=== PATIENT | male | born 1930 | race Caucasian/White ===

== ENCOUNTER 2021-08-19 14:01 | Inpatient (IN) ==
--- NOTE | 2021-08-19 14:12 | Emergency Department Note ---
HPI General Chief complaint: Extremity Injury, Lower Stated complaint: right hip fracture Time Seen by Provider: 08/19/21 14:11 Source: patient and family Mode of arrival: ambulatory Limitations: no limitations History of Present Illness HPI Narrative: 89-year-old male with past medical history of hypertension and diabetes presenting with right hip pain. Patient reports that he fell from standing at home about 1 month ago and he has had persistent right hip pain. He had multiple x-rays which did not show a fracture however he followed up recently with his primary provider and an MRI was ordered and obtained 3 days ago. MRI shows a subcapital fracture of the right femoral neck. Patient was sent to the emergency department for admission and surgical repair. Patient and spouse state that he has difficulty ambulating and bearing any weight on the right leg. He has been trying to ambulate with a walker but it has been difficult and painful. Patient denies any pain anywhere else. He does have a history of bilateral knee replacements. He takes a full aspirin daily. Related Data Home Medications Medication Instructions Recorded Confirmed amlodipine 5 mg tablet 5 mg PO QDAY 09/13/19 08/19/21 cholecalciferol (vitamin D3) 50 50 mcg PO QDAY 09/13/19 08/19/21 mcg (2,000 unit) capsule aspirin 325 mg tablet 325 mg PO DAILY 08/19/21 08/19/21 cyclobenzaprine 5 mg tablet 1 tab PO BIDP PRN 08/19/21 08/19/21 furosemide 20 mg tablet 2 tab PO QDAY 08/19/21 08/19/21 insulin glargine 100 unit/mL (3 22 unit SUBCUT QDAY 08/19/21 08/19/21 mL) subcutaneous pen (Lantus Solostar U-100 Insulin) Previous Rx's Medication Instructions Recorded diclofenac sodium 1 % topical gel 4 g TOPICAL QID #100 g 07/26/20 allopurinol 100 mg tablet 200 mg PO BID #360 tab 01/29/21 olmesartan 5 mg tablet (Benicar) 5 mg PO QDAY #90 tab 06/17/21 pravastatin 40 mg tablet 40 mg PO QDAY #90 tab 06/17/21 Lateral stabilizing R knee brace #1 ea 08/01/21 hydrocodone 7.5 mg-acetaminophen 1 tab PO BID PRN #30 tab 08/14/21 325 mg tablet Allergies Allergy/AdvReac Type Severity Reaction Status Date / Time No Known Drug Allergies Allergy Verified 08/14/21 16:52 Review of Systems ROS ROS Narrative: Narrative: Constitutional: Denies fever ENT ED: Denies throat pain Cardiovascular: Denies chest pain or palpitations Respiratory: Denies shortness of breath or cough Gastrointestinal: Denies abdominal pain, nausea or vomiting Genitourinary: Denies dysuria Musculoskeletal: Denies back pain Integumentary: Denies rash Neurological: Denies headache, weakness or dizziness Psychiatric: Denies anxiety Endocrine: Denies fatigue Hematological/Lymphatic: Denies easy bruising PFSH Narrative Patient History Narrative: Narrative: Medical/Surgical/Family History All Active Problems (Updated 08/19/21 @ 16:47 by August Garcia MD) Closed fracture of right hip (Acute) Right knee pain (Acute) Right hip pain (Acute) Right knee DJD (Acute) Decreased pedal pulses (Acute) Frequent falls (Acute) Acute pain of right hip (Acute) Fall (Acute) Fall (Acute) Fracture of rib of left side (Acute) Rib fractures (Acute) Type 2 diabetes mellitus (Chronic) Gout (Chronic) Medicare annual wellness visit, initial (Acute) Annual physical exam (Acute) Left ankle pain (Acute) Right ankle pain (Acute) Lumbago (Acute) Cough (Acute) Neck pain (Acute) Fatigue (Acute) Unexplained weight loss (Acute) Abnormal PSA (Acute) Elevated PSA (Acute) Chills (Acute) Neck pain (Acute) Lightheadedness (Acute) Prostate cancer (Acute) 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, cervical region (Acute) Lymphadenopathy of right cervical region (Acute) Sialadenitis (Acute) Androgen deprivation therapy (Acute) Medical History Annual physical exam Cough Fall Fatigue Fracture of rib of left side Gout Left ankle pain Lightheadedness Lumbago Lymphadenopathy of right cervical region Medicare annual wellness visit, initial Neck pain Right ankle pain Sialadenitis Type 2 diabetes mellitus Unexplained weight loss Surgical History History of bilateral knee replacement History of cholecystectomy History of herniorrhaphy Family History Brother Type 2 diabetes mellitus Sister Type 2 diabetes mellitus Mother History of cancer Type 2 diabetes mellitus Social History Smoking Status: Former smoker Alcohol Intake Frequency: 0-2 drinks per day Substance Use: does not use Exam Narrative Narrative: Narrative: General Limitations: no limitations General appearance: Present alert and in no apparent distress Head Head: Present atraumatic and normocephalic Eye Eye: Present normal appearance and EOMI; Absent scleral icterus or conjunctival injection ENT ENT: Present mucous membranes moist Neck Neck: Present normal inspection and trachea midline Chest Chest: Present symmetric chest wall rise Respiratory Respiratory: Present normal lung sounds bilaterally; Absent respiratory distress, wheezes, stridor, accessory muscle use or prolonged expiratory phase Cardiovascular Cardiovascular: Present regular rate and normal rhythm; Absent systolic murmur or diastolic murmur Adbominal Abdominal: Present soft; Absent distention, tenderness, guarding, rebound or rigidity Expanded Lower Extremity Hip/Pelvis: Present other (Tenderness to palpation of the lateral and anterior right hip. Distal sensation intact. 2+ DP pulses.) Back Back: Absent spinous process tenderness Neurological Neurological: Present alert and oriented X3; Absent motor sensory deficit Psychiatric Psychiatric: Present normal affect and normal mood Skin Skin: Present warm (WNL) and dry Course Consultations Consultation #1: Dr. Muniz, orthopedics Time: 14:55 Consultation #2: Dr. Crisostomo, hospitalist Time: 15:40 Vital Signs Vital signs: Vital Signs Temperature 98.1 F 08/19/21 14:02 Pulse Rate 65 08/19/21 14:02 Respiratory Rate 18 08/19/21 14:02 Blood Pressure 111/72 08/19/21 14:02 Pulse Oximetry (%) 93 08/19/21 14:02 Temperature 97.3 F 08/19/21 16:40 Pulse Rate 64 08/19/21 16:40 Respiratory Rate 15 08/19/21 16:40 Blood Pressure 165/79 08/19/21 16:40 Pulse Oximetry (%) 90 08/19/21 16:40 [facility] Narrative Medical decision making narrative: 89-year-old male presenting with right hip pain. MRI from 3 days ago shows a subcapital right femoral neck fracture. I spoke with Dr. Muniz of orthopedics who will operate on the patient. Preoperative labs, EKG, and imaging ordered. EKG does show what appears to be atrial fibrillation without rapid ventricular rate. Patient does not report any prior history of afib. Labs are pending, will consult the hospitalist for admission. 1630. Patient endorsed to Dr. Crisostomo for admission. Lab Data Lab results reviewed: Yes I reviewed the patient's lab results. Result diagrams: 08/19/21 14:41 08/19/21 14:41 Labs: Lab Results 08/19/21 08/19/21 Range/Units 14:41 14:41 WBC 5.9 (4.5-11.0) K/mcL RBC 3.73 L (4.63-6.08) M/mcL Hgb 12.2 L (13.7-17.5) g/dL Hct 39.0 L (40.1-51.0) % MCV 104.6 H (80.0-100.0) fL MCH 32.7 (26.0-34.0) pg MCHC 31.3 (31.0-36.0) g/dL RDW 13.4 (11.5-14.5) % Plt Count 161 (140-440) K/mcL MPV 10.3 (7.4-10.4) fL Neut % (Auto) 45.0 (38.0-78.0) % Lymph % (Auto) 37.4 (15.5-49.0) % [place] % (Auto) 9.6 (1.0-12.0) % Eos % (Auto) 7.2 H (0.0-7.0) % Baso % (Auto) 0.8 (0.0-2.0) % Lymph # (Auto) 2.22 (1.50-4.80) K/mcL [place] # (Auto) 0.57 (0.10-0.90) K/mcL Eos # (Auto) 0.43 (0.00-0.70) K/mcL Baso # (Auto) 0.05 (0.00-0.30) K/mcL Absolute Neutrophils 2.67 (1.80-8.00) K/mcL Sodium 141 (133-145) mmol/L Potassium 4.8 (3.3-5.1) mmol/L Chloride 109 H (96-108) mmol/L Carbon Dioxide 23 (22-30) mmol/L Anion Gap 9.0 (8.0-16.0) BUN 29 H (8-23) mg/dL Creatinine 1.3 H (0.7-1.2) mg/dL GFR Calculation 48 Glucose 161 H (70-105) mg/dL Calcium 9.2 (8.6-10.4) mg/dL Total Bilirubin 0.3 (0.1-1.0) mg/dL AST 25 (<40) U/L ALT 14 (<40) U/L Alkaline Phosphatase 107 (39-117) U/L Total Protein 6.2 (5.9-8.4) gm/dL Albumin 3.2 (3.2-5.2) gm/dL Globulin 3.0 (2.2-3.7) gm/dL Albumin/Globulin Ratio 1.1 (1.0-2.3) Radiology Data Radiology results reviewed: Yes I reviewed the patient's radiology results. Radiology results narrative: Ordering Physician:August Garcia M.D. Date of Service:08/19/21 Procedure(s):XR chest 1V CLINICAL INFORMATION: Preop COMPARISON: None. TECHNIQUE: PA and Lateral views FINDINGS: The heart is slightly enlarged. Increased density in the superior mediastinum is unchanged and likely reflects tortuous brachiocephalic artery. The pulmonary vessels are normal. Azygos lobe noted. Minor bibasilar atelectasis appreciated no infiltrates or effusions. IMPRESSION: Mild cardiomegaly and minor bibasilar atelectasis. Interpreted and Authenticated by: Fermin Leo 08/19/21 EKG Data EKG #1: EKG attestation: Yes I reviewed and interpreted this EKG. and Yes There are no EKG findings of acute coronary syndrome EKG results narrative: Atrial fibrillation at [address] elevation or depression. Discharge Plan Patient/Caregiver Discharge Instructions Pt seen by SUPERVISOR SHEARING/PA only: No Clinical Impression: Closed fracture of right hip Patient Disposition: Xfer As Inpt ([facility]) Condition: Fair Discharge Date/Time: 08/19/21 16:30 Discharge Location: [facility]
--- NOTE | 2021-08-19 15:11 | XRay Report ---
CLINICAL INFORMATION: Preop COMPARISON: None. TECHNIQUE: PA and Lateral views FINDINGS: The heart is slightly enlarged. Increased density in the superior mediastinum is unchanged and likely reflects tortuous brachiocephalic artery. The pulmonary vessels are normal. Azygos lobe noted. Minor bibasilar atelectasis appreciated no infiltrates or effusions. IMPRESSION: Mild cardiomegaly and minor bibasilar atelectasis. Interpreted and Authenticated by: Fermin Leo 08/19/21
[2021-08-19 15:49] LABS: Basophils # (Auto) 0.05 K/mcL (0.00-0.30); Basophils % (Auto) 0.8 % (0.0-2.0); Eosinophils # (Auto) 0.43 K/mcL (0.00-0.70); Eosinophils % (Auto) 7.2 % (0.0-7.0); Hemoglobin 12.2 g/dL (13.7-17.5); Lymphocytes # (Auto) 2.22 K/mcL (1.50-4.80); Lymphocytes % (Auto) 37.4 % (15.5-49.0); Mean Cell Volume 104.6 fL (80.0-100.0); Mean Corpuscular HGB Conc 31.3 g/dL (31.0-36.0); Mean Platelet Volume 10.3 fL (7.4-10.4); Monocytes # (Auto) 0.57 K/mcL (0.10-0.90); Monocytes % (Auto) 9.6 % (1.0-12.0); Platelet Count 161 K/mcL (140-440); RBC 3.73 M/mcL (4.63-6.08); Red Cell Distribution Width 13.4 % (11.5-14.5); WBC 5.9 K/mcL (4.5-11.0)
--- NOTE | 2021-08-19 15:50 | Internal Med History&Physical ---
HPI History of Present Illness Patient information: Note initiated : 08/19/21 at 3:45 pm Service Date, if different from initiated Date: [] Patient: Cipriano Man a 89 y/o M admitted on for right hip fracture. Chief Complaint: [] History of present illness: Mr. Man is a 89 year old M Patient says he tripped backwards that his right knee gave out landing on his right hip this happened about a month ago. Has had persistent pain and difficulty walking since then. He got an MRI by his PCP few days ago which showed a right hip fracture. Patient sent to the ED and Dr. Muniz for orthopedic surgery was contacted. MRI reported a subcapital fracture of the right femoral neck. Patient denies any recent illnesses. EKG in the ED showed appeared to be slow A. fib. Patient denies chest pain or shortness of breath. Awaiting laboratory results. Review of Systems: Pertinent positives as above. Denies headache/fever/chills/nausea/vomiting/chest or abdominal pain/cough/dyspnea/diarrhea. Remaining 10 point review of system reviewed [facility] All Active Problems (Updated 08/15/21 @ 08:01 by Ramana Ortiz MD) Right knee pain (Acute) Right hip pain (Acute) Right knee DJD (Acute) Decreased pedal pulses (Acute) Frequent falls (Acute) Acute pain of right hip (Acute) Fall (Acute) Fall (Acute) Fracture of rib of left side (Acute) Rib fractures (Acute) Type 2 diabetes mellitus (Chronic) Gout (Chronic) Medicare annual wellness visit, initial (Acute) Annual physical exam (Acute) Left ankle pain (Acute) Right ankle pain (Acute) Lumbago (Acute) Cough (Acute) Neck pain (Acute) Fatigue (Acute) Unexplained weight loss (Acute) Abnormal PSA (Acute) Elevated PSA (Acute) Chills (Acute) Neck pain (Acute) Lightheadedness (Acute) Prostate cancer (Acute) 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, cervical region (Acute) Lymphadenopathy of right cervical region (Acute) Sialadenitis (Acute) Androgen deprivation therapy (Acute) Medical History Annual physical exam Cough Fall Fatigue Fracture of rib of left side Gout Left ankle pain Lightheadedness Lumbago Lymphadenopathy of right cervical region Medicare annual wellness visit, initial Neck pain Right ankle pain Sialadenitis Type 2 diabetes mellitus Unexplained weight loss Surgical History History of bilateral knee replacement History of cholecystectomy History of herniorrhaphy Family History Brother Type 2 diabetes mellitus Sister Type 2 diabetes mellitus Mother History of cancer Type 2 diabetes mellitus Social History marital status: education level: high school occupational status: retired smoking status: Former smoker pack-years: 40 alcohol intake frequency: 0-2 drinks per day substance use type: does not use MEDS/ALLERGIES Home Medications and Allergies Home Medications Medication Instructions Recorded Confirmed Type amlodipine 5 mg tablet 5 mg PO QDAY 09/13/19 08/19/21 History cholecalciferol (vitamin D3) 50 50 mcg PO QDAY 09/13/19 08/14/21 History mcg (2,000 unit) capsule diclofenac sodium 1 % topical gel 4 g TOPICAL QID #100 g 07/26/20 08/14/21 Rx allopurinol 100 mg tablet 200 mg PO BID #360 tab 01/29/21 08/14/21 Rx olmesartan 5 mg tablet (Benicar) 5 mg PO QDAY #90 tab 06/17/21 08/19/21 Rx pravastatin 40 mg tablet 40 mg PO QDAY #90 tab 06/17/21 08/19/21 Rx Lateral stabilizing R knee brace #1 ea 08/01/21 08/14/21 Rx lidocaine 5 % topical patch 1 patch TOPICAL QDAY PRN ea 08/01/21 08/14/21 History hydrocodone 7.5 mg-acetaminophen 1 tab PO BID PRN #30 tab 08/14/21 08/19/21 Rx 325 mg tablet cyclobenzaprine 5 mg tablet 1 tab PO BIDP PRN 08/19/21 08/19/21 History furosemide 20 mg tablet 2 tab PO QDAY 08/19/21 08/19/21 History insulin glargine 100 unit/mL (3 22 unit SUBCUT QDAY 08/19/21 08/19/21 History mL) subcutaneous pen (Lantus Solostar U-100 Insulin) Allergies Allergy/AdvReac Type Severity Reaction Status Date / Time No Known Drug Allergies Allergy Verified 08/14/21 16:52 EXAM Constitutional Vitals: Temp Pulse Resp BP Pulse Ox 98.1 F 62 18 119/76 91 08/19/21 14:02 08/19/21 15:32 08/19/21 14:02 08/19/21 15:32 08/19/21 15:32 Exam: General: Alert, Awake, No acute Distress Eyes/N/T: EOMI, PERRL, Head/Neck: neck supple, normocephalic atraumatic CV: Mildly bradycardic and irregular, No murmurs, normal s1/s2 Pulm: Clear b/l, no wheezing/rhonchi/rales Abd: soft, nontender, +BS x4 Ext: no clubbing/cyanosis, b/l LE chronic 1+ edema Neuro: Alert, no focal deficits, moves all extremities, CN 2-12 grossly intact, symmetrical strength b/l upper/lower, sensations intact b/l upper/lower Skin: warm/dry DATA Data Completed and Pending Labs: Labs from last 24 hours 08/19/21 08/19/21 14:41 14:41 WBC Pending RBC Pending Hgb Pending Hct Pending MCV Pending MCH Pending MCHC Pending RDW Pending Plt Count Pending MPV Pending Neut % (Auto) Pending Sodium Pending Potassium Pending Chloride Pending Carbon Dioxide Pending Anion Gap Pending BUN Pending Creatinine Pending GFR Calculation Pending Glucose Pending Calcium Pending Total Bilirubin Pending AST Pending ALT Pending Alkaline Phosphatase Pending Total Protein Pending Albumin Pending Globulin Pending Albumin/Globulin Ratio Pending A/P Narrative A/P Narrative: A: *Right hip fracture: *Generalized weakness/deconditioning: *?Permanent AFib, slow: *CKD IIIb: *HTN/HLD: *DM: *Chronic pain: *Peripheral edema: On Lasix 40mg daily@home P: -Dr Muniz for Ortho -Pain control -PT/OT -Telemetry monitoring, follow-up EKG -Basal and SSI -Continue Norvasc/ARB -Continue statin - -CM for placement needs -ppx: SCD and postop per Ortho Time Spent With Patient Time: Total time spent is greater than 50% in coordination of care (as documented) at patient's floor/unit and/or counseling patient: Total time spent with greater than 50% in coordination of care (as documented) at patient's floor/unit and/or counseling patient:: 50 - 70 minutes
[2021-08-19 16:14] LABS: ALT/SGPT 14 U/L (<40); AST/SGOT 25 U/L (<40); Albumin 3.2 gm/dL (3.2-5.2); Albumin/Globulin Ratio 1.1 (1.0-2.3); Alkaline Phosphatase 107 U/L (39-117); Bilirubin,Total 0.3 mg/dL (0.1-1.0); Blood Urea Nitrogen 29 mg/dL (8-23); Calcium 9.2 mg/dL (8.6-10.4); Carbon Dioxide 23 mmol/L (22-30); Chloride 109 mmol/L (96-108); Glomerular Filtration Rate 48; Glucose 161 mg/dL (70-105)
[2021-08-19] MEDS ORDERED: SENNOSIDES 1 TABLET PO PRN (17:20)
[2021-08-19] MEDS ORDERED: ONDANSETRON 4 MG/2 ML VIAL IV PRN (17:20)
[2021-08-19] MEDS ORDERED: DEXTROSE 50% 50 ML VIAL IV PRN (17:20)
[2021-08-19] MEDS ORDERED: DEXTROSE 31 GM ORAL.SUSP PO PRN (17:20)
[2021-08-19] MEDS ORDERED: POTASSIUM CHLORIDE 40 MEQ in DEXTROSE 5% IN WATER 500 ML IV PRN (17:20)
[2021-08-19] MEDS ORDERED: morphine 4 MG/ML VIAL IV PRN (17:20)
[2021-08-19] MEDS ORDERED: POTASSIUM CHLORIDE 20 MEQ TABLET PO PRN ×2 (17:20)
[2021-08-19] MEDS ORDERED: MAGNESIUM SULFATE 2 GM/50 ML BAG IV PRN (17:20)
[2021-08-19] MEDS ORDERED: POLYETHYLENE GLYCOL 3350 17 GM PACKET PO PRN (17:20)
[2021-08-19] MEDS ORDERED: IPRATROPIUM/ALBUTEROL 3 ML AMPUL.NEB NEB PRN (17:20)
[2021-08-19] MEDS ORDERED: HYDROCODONE/APAP 7.5/325MG TABLET PO PRN (17:31)
[2021-08-19] MEDS ORDERED: CYCLOBENZAPRINE 10 MG TABLET PO PRN (17:32)
[2021-08-19] MEDS ORDERED: LIDOCAINE HCL/PF 100 MG/5 ML SYRINGE IV ONE (19:10)
[2021-08-19] MEDS ORDERED: DEXAMETHASONE 10 MG/ML VIAL ONE (19:10)
[2021-08-19] MEDS ORDERED: GLYCOPYRROLATE 0.2 MG/ML VIAL IV ONE (19:10)
[2021-08-19] MEDS ORDERED: TRANEXAMIC ACID 1,000 MG/10 ML VIAL ONE (19:10)
[2021-08-19] MEDS ORDERED: SUGAMMADEX SODIUM 200 MG/2 ML VIAL IV ONE (19:10)
[2021-08-19] MEDS ORDERED: ONDANSETRON 4 MG/2 ML VIAL ONE (19:10)
[2021-08-19] MEDS ORDERED: PROPOFOL 200 MG/20 ML VIAL IV ONE (19:10)
[2021-08-19] MEDS ORDERED: ROCURONIUM 10 MG/ML ML IV ONE (19:10)
[2021-08-19] MEDS: DOCUSATE SODIUM 100 MG CAPSULE PO SCH (21:24)
[2021-08-19] MEDS: SIMVASTATIN 10 MG TABLET PO SCH (21:35)
[2021-08-19] MEDS: INSULIN LISPRO 1 UNIT/0.01 ML UNIT SQ SCH ×2 (21:42→21:43)
[2021-08-19] MEDS: INSULIN GLARGINE, HUMAN 1 UNIT/0.01 ML SQ SCH (21:45)
[2021-08-19] MEDS: 0.9 % SODIUM CHLORIDE 10 ML SYRINGE IV SCH (22:00)
[2021-08-20] MEDS: 0.9 % SODIUM CHLORIDE 10 ML SYRINGE IV SCH ×3 (06:02→22:18)
[2021-08-20 06:38] LABS: Basophils # (Auto) 0.05 K/mcL (0.00-0.30); Basophils % (Auto) 0.9 % (0.0-2.0); Eosinophils % (Auto) 8.6 % (0.0-7.0); Hematocrit 36.6 % (40.1-51.0); Hemoglobin 11.6 g/dL (13.7-17.5); Lymphocytes # (Auto) 2.17 K/mcL (1.50-4.80); Lymphocytes % (Auto) 37.4 % (15.5-49.0); Mean Cell Volume 103.1 fL (80.0-100.0); Mean Corpuscular HGB Conc 31.7 g/dL (31.0-36.0); Monocytes # (Auto) 0.55 K/mcL (0.10-0.90); Monocytes % (Auto) 9.5 % (1.0-12.0); Neutrophils % (Auto) 43.6 % (38.0-78.0); Platelet Count 147 K/mcL (140-440); RBC 3.55 M/mcL (4.63-6.08); Red Cell Distribution Width 13.2 % (11.5-14.5); WBC 5.8 K/mcL (4.5-11.0)
[2021-08-20 06:59] LABS: ALT/SGPT 16 U/L (<40); AST/SGOT 23 U/L (<40); Albumin 3.3 gm/dL (3.2-5.2); Albumin/Globulin Ratio 1.4 (1.0-2.3); Alkaline Phosphatase 96 U/L (39-117); Bilirubin,Direct < 0.2 mg/dL (0-0.3); Bilirubin,Total 0.4 mg/dL (0.1-1.0); Blood Urea Nitrogen 22 mg/dL (8-23); Calcium 9.1 mg/dL (8.6-10.4); Carbon Dioxide 24 mmol/L (22-30); Chloride 106 mmol/L (96-108); Globulin 2.3 gm/dL (2.2-3.7); Glomerular Filtration Rate 48; Glucose 50 mg/dL (70-105); Lactate Dehydrogenase 148 U/L (135-225); Phosphorous 3.1 mg/dL (2.5-4.5); Triglycerides 36 mg/dL (<150); Uric Acid 4.9 mg/dL (2.5-8.0)
[2021-08-20] MEDS: INSULIN LISPRO 1 UNIT/0.01 ML UNIT SQ SCH ×4 (07:41→22:29)
[2021-08-20] MEDS: FUROSEMIDE 40 MG TABLET PO SCH (07:41)
[2021-08-20] MEDS: OLMESARTAN MEDOXOMIL 20 MG TABLET PO SCH (07:41)
[2021-08-20] MEDS: amLODIPine 5 MG TABLET PO SCH (07:41)
[2021-08-20] MEDS: DOCUSATE SODIUM 100 MG CAPSULE PO SCH ×3 (07:41→23:05)
--- NOTE | 2021-08-20 08:16 | Internal Med Progress Note ---
SUBJECTIVE Subjective Patient information: Note initiated : 08/20/21 at 8:14 am Service Date, if different from initiated Date: [] Patient: Cipriano Man 89 y/o M admitted on 08/19/21 for right hip fracture. Chief Complaint: [] Interval history: History of present illness: Mr. Man is a 89 year old M Patient says he tripped backwards that his right knee gave out landing on his right hip this happened about a month ago. Has had persistent pain and difficulty walking since then. He got an MRI by his PCP few days ago which showed a right hip fracture. Patient sent to the ED and Dr. Muniz for orthopedic surgery was contacted. MRI reported a subcapital fracture of the right femoral neck. Patient denies any recent illnesses. EKG in the ED showed appeared to be slow A. fib. Patient denies chest pain or shortness of breath. Awaiting laboratory results. 08/20 No new complaints overnight events. Patient denies any history of arrhythmias. AFib on EKG. Review of Systems: denies headache/fever/chills/nausea/vomiting/chest or abdominal pain/cough/dyspnea/diarrhea. Otherwise see above. Constitutional Vitals: Vital Signs Temp Pulse Resp BP Pulse Ox 97.1 F 61 15 148/87 92 08/20/21 07:15 08/20/21 07:15 08/20/21 07:15 08/20/21 07:15 08/20/21 07:15 Period Temp Pulse Resp BP Sys/Oropeza Pulse Ox Last 24 Hr 97.1 F-98.1 F 52-73 12-20 111-185/65-92 88-95 Intake and Output 08/19/21 08/20/21 08/20/21 21:59 05:59 13:59 Intake Total 0 Output Total 1675 Balance -1675 Weight 82.1 kg Intake & Output: Intake & Output 08/19/21 08/20/21 08/20/21 21:59 05:59 13:59 Intake Total 0 Output Total 1675 Balance -1675 Weight 82.1 kg Intake: Oral 0 Output: Void Amount 1675 Other: Urine Appearance Clear Urine Color Straw Stool Size Moderate Stool Color Brown Stool Consistency Formed # Bowel Movements 1 Exam: General: Alert, Awake, No acute Distress Eyes/N/T: EOMI,, Head/Neck: neck supple, CV: irregular, No murmurs, Pulm: Clear b/l, no wheezing/rhonchi/rales Abd: soft, nontender, +BS x4 Ext: no clubbing/cyanosis, b/l LE chronic 1+ edema Neuro: Alert, no focal deficits, moves all extremities, Skin: warm/dry OBJ DATA Labs CBC & Chem 7: 08/20/21 05:40 08/20/21 05:39 Labs: Abnormal Lab Results 08/20/21 08/20/21 08/19/21 05:40 05:39 14:41 RBC 3.55 L Hgb 11.6 L Hct 36.6 L MCV 103.1 H Eos % (Auto) 8.6 H Chloride 109 H BUN 29 H Creatinine 1.3 H 1.3 H Glucose 50 L 161 H Total Protein 5.6 L 08/19/21 14:41 RBC 3.73 L Hgb 12.2 L Hct 39.0 L MCV 104.6 H Eos % (Auto) 7.2 H Chloride BUN Creatinine Glucose Total Protein Meds: Medications Acetaminophen (Acetaminophen 325 Mg Tablet) 650 mg PO Q6HP PRN; Protocol PRN Reason: Per Pain Protocol/Fever > 101 Hydrocodone Bitart/Acetaminophen (Hydrocodone/Apap 7.5/325mg Tablet) 1 tab PO BIDP PRN PRN Reason: Pain Last Admin: 08/19/21 23:44 Dose: 1 tab Documented by: Albuterol/Ipratropium (Ipratropium/Albuterol 3 Ml Ampul.Neb) 3 ml NEB Q4HP PRN PRN Reason: Shortness Of Breath Amlodipine Besylate (Amlodipine 5 Mg Tablet) 5 mg PO QDAY [facility] Last Admin: 08/20/21 07:41 Dose: 5 mg Documented by: Cyclobenzaprine HCl (Cyclobenzaprine 10 Mg Tablet) 5 mg PO BIDP PRN PRN Reason: Muscle Spasm Dextrose (Dextrose 50% 50 Ml Vial) 0 ml IV UD PRN PRN Reason: Per Sliding Scale Diagnostic Test (Pha) (Accu-Chek 1 Each Strip) 1 each FS ACHS [facility] Last Admin: 08/20/21 07:41 Dose: 1 each Documented by: Docusate Sodium (Docusate Sodium 100 Mg Capsule) 100 mg PO BID [facility] Last Admin: 05/18/22 07:41 Dose: 100 mg Documented by: Furosemide (Furosemide 40 Mg Tablet) 40 mg PO DAILY [facility] Last Admin: 08/20/21 07:41 Dose: 40 mg Documented by: Glucose (Dextrose 31 Gm Oral.Susp) 15 gm PO PRN PRN PRN Reason: Hypoglycemia Potassium Chloride 40 meq/ (Dextrose) 520 mls @ 130 mls/hr IV UD PRN PRN Reason: Potassium < 3 Magnesium Sulfate (Magnesium Sulfate) 2 gm in 50 mls @ 50 mls/hr IV UD PRN PRN Reason: Magnesium </= 1.6 Insulin Glargine (Insulin Glargine, Human 1 Unit/0.01 Ml) [address] [facility] Last Admin: 08/19/21 21:45 Dose: 10 units Documented by: Insulin Human Lispro (Insulin Lispro 1 Unit/0.01 Ml Unit) 0 unit SQ [facility]; Protocol Last Admin: 08/20/21 07:41 Dose: Not Given Documented by: Morphine Sulfate (Morphine 4 Mg/Ml Vial) 0 mg IV Q3HP PRN PRN Reason: Pain Olmesartan (Olmesartan Medoxomil 20 Mg Tablet) 5 mg PO DAILY [facility] Last Admin: 08/20/21 07:41 Dose: 5 mg Documented by: Ondansetron HCl (Ondansetron 4 Mg/2 Ml Vial) 4 mg IV Q4HP PRN PRN Reason: Nausea And Vomiting Polyethylene Glycol (Polyethylene Glycol 3350 17 Gm Packet) 17 gm PO DAILYP PRN PRN Reason: Constipation Potassium Chloride (Potassium Chloride 20 Meq Tablet) 40 meq PO UD PRN PRN Reason: Potssium is 3-3.5 Potassium Chloride (Potassium Chloride 20 Meq Tablet) 40 meq PO UD PRN PRN Reason: Potassium < 3 Senna (Sennosides 1 Tablet) 2 tab PO DAILYP PRN PRN Reason: Constipation Simvastatin (Simvastatin 10 Mg Tablet) [address] [facility] Last Admin: 08/19/21 21:35 Dose: 10 mg Documented by: Sodium Chloride (0.9 % Sodium Chloride 10 Ml Syringe) 10 ml IV Q8 [facility] Last Admin: 08/20/21 06:02 Dose: 10 ml Documented by: A/P Narrative A/P Narrative: A: *Right hip fracture: *Generalized weakness/deconditioning: *Permanent AFib, slow: -CHADSVASC=3 *CKD IIIb: *Anemia, chronic: *HTN/HLD: *DM: *Chronic pain: *Peripheral edema: On Lasix 40mg daily@home P: -Dr Muniz for Ortho -Pain control -PT/OT -Telemetry monitoring, follow-up EKG -echo -Anticoagulation discussion -Basal and SSI -Renally dosed allopurinol -Continue Norvasc/ARB -Continue statin -CM for placement needs -ppx: SCD and postop per Ortho Time Spent With Patient Time: Total time spent is greater than 50% in coordination of care (as documented) at patient's floor/unit and/or counseling patient: Total time spent with greater than 50% in coordination of care (as documented) at patient's floor/unit and/or counseling patient:: 35 - 50 minutes QUALITY VTE Deep Vein Thrombosis/Pulmonary Embolism Present on Admission: No
[2021-08-20] MEDS ORDERED: ALLOPURINOL 100 MG TABLET PO SCH (09:00)
[2021-08-20] MEDS: ALLOPURINOL 100 MG TABLET PO SCH (11:23)
[2021-08-20] MEDS ORDERED: ceFAZolin 2 GM in DEXTROSE 5% IN WATER 50 ML IV SCH ×2 (18:45→20:00)
[2021-08-20] MEDS ORDERED: ceFAZolin 1 GM VIAL ONE (18:56)
[2021-08-20] MEDS ORDERED: BUPIVACAINE PF 0.5% 30 ML VIAL ONE (19:10)
[2021-08-20] MEDS ORDERED: PROMETHAZINE 25 MG/ML VIAL IV PRN (19:33)
[2021-08-20] MEDS ORDERED: NALOXONE HCL 0.4 MG/ML VIAL IV PRN (19:33)
[2021-08-20] MEDS ORDERED: KETOROLAC 30 MG/ML VIAL IV PRN (19:33)
[2021-08-20] MEDS ORDERED: IPRATROPIUM/ALBUTEROL 3 ML AMPUL.NEB NEB PRN (19:33)
[2021-08-20] MEDS ORDERED: ACETAMINOPHEN 1,000 MG/100 ML BAG IV ONE ×2 (19:33→20:32)
[2021-08-20] MEDS ORDERED: LACTATED RINGERS 250 ML IV PRN (19:33)
[2021-08-20] MEDS ORDERED: ONDANSETRON 4 MG/2 ML VIAL IV PRN (19:33)
[2021-08-20] MEDS ORDERED: LACTATED RINGERS 1,000 ML IV SCH (19:45)
--- NOTE | 2021-08-20 19:53 | General Surgery Procedure Note ---
Date of procedure: Note initiated : 08/20/21 at 7:51 pm Service Date, if different from initiated Date: [] Pre-op diagnosis: right hip femoral neck fracture Post-op diagnosis: same Procedure: right hip perc screws Anesthesia: SABRINA Surgeon: Fermin Muniz Estimated blood loss: 25 Pathology: none sent Condition: stable Disposition: PACU
--- NOTE | 2021-08-20 19:54 | Discharge Plan ---
DC Instructions-General Patient Instructions Dressing Care: May shower in 2 days Discharge Plan Patient/Caregiver Discharge Instructions Activity: ambulate only with your walker, as instructed and other Diet: Regular Diet Prescriptions: No Action allopurinol 100 mg tablet 200 mg PO BID Qty: 360 1RF pravastatin 40 mg tablet 40 mg PO QDAY Qty: 90 1RF olmesartan [Benicar] 5 mg tablet 5 mg PO QDAY Qty: 90 1RF amlodipine 5 mg tablet 5 mg PO QDAY 0RF cholecalciferol (vitamin D3) 50 mcg (2,000 unit) capsule 50 mcg PO QDAY 0RF (DME) Lateral stabilizing R knee brace See Rx Instructions .Route .MEDSUPPLY Qty: 1 0RF Rx Instructions: As directed hydrocodone-acetaminophen 7.5-325 mg tablet 1 tab PO BID PRN (Reason: pain) Qty: 30 0RF diclofenac sodium 1 % gel 4 g topical QID Qty: 100 0RF Rx Instructions: apply to area of pain furosemide 20 mg tablet 2 tab PO QDAY 0RF cyclobenzaprine 5 mg tablet 1 tab PO BIDP PRN (Reason: muscle spasm) 0RF Lantus Solostar U-100 Insulin 100 unit/mL (3 mL) insulin pen 22 unit subcut QDAY 0RF aspirin 325 mg Tablet 325 mg PO DAILY 0RF leuprolide acetate (6 month) 45 mg syringe kit 45 mg IM ONCE Qty: 1 0RF Follow Up Plan Follow up with: Fermin Muniz MD [Physician] - Ramana Ortiz MD [Primary Care Provider] - Patient Disposition: Xfer SNF Plan of Treatment: 50% weight bearing Prognosis: Fair Rehab Potential: Good I certify that the patient requires SNF services: Yes Overall status at discharge: patient is progressing back to baseline Discharge Orders: Discharge Order (Routine); Ordered 08/20/21 Ordered By: Fermin Muniz Discharge Comment: cc: right hip fx s/p per screw fixation
[2021-08-20] MEDS ORDERED: HYDROcodone/APAP 10/325MG TABLET PO PRN (19:55)
[2021-08-20] MEDS ORDERED: ONDANSETRON 4 MG ODT TABLET SL PRN (19:55)
[2021-08-20] MEDS ORDERED: POLYETHYLENE GLYCOL 3350 17 GM PACKET PO PRN (19:55)
[2021-08-20] MEDS ORDERED: FLEETS ADULT ENEMA PR PRN (19:55)
[2021-08-20] MEDS ORDERED: MAGNESIUM HYDROXIDE 30 ML ORAL.SUSP PO PRN (19:55)
[2021-08-20] MEDS ORDERED: morphine 4 MG/ML VIAL IV PRN (19:55)
[2021-08-20] MEDS ORDERED: BISACODYL 10 MG SUPP.RECT PR PRN (19:55)
[2021-08-20] MEDS: fentaNYL 100 MCG/2 ML VIAL IV PRN ×4 (20:24→20:30)
[2021-08-20] MEDS ORDERED: fentaNYL 100 MCG/2 ML VIAL IV ONE (20:31)
[2021-08-20] MEDS: SIMVASTATIN 10 MG TABLET PO SCH (22:26)
[2021-08-20] MEDS: INSULIN GLARGINE, HUMAN 1 UNIT/0.01 ML SQ SCH (22:27)
[2021-08-20] MEDS: SENNOSIDES 1 TABLET PO SCH (22:27)
--- NOTE | 2021-08-21 03:55 | XRay Report ---
CLINICAL INFORMATION: ORIF subcapital fracture right hip COMPARISON: None. FINDINGS: Two digital images submitted from the OR show subcapital fracture anatomically aligned transfixed by three screws. Total fluoroscopy time 0.5 minutes.. IMPRESSION: ORIF subcapital fracture in anatomic alignment Interpreted and Authenticated by: Fermin Leo 08/21/21
[2021-08-21] MEDS: 0.9 % SODIUM CHLORIDE 10 ML SYRINGE IV SCH ×3 (04:23→22:51)
[2021-08-21] MEDS: ceFAZolin 1 GM VIAL IV SCH ×2 (04:23→11:09)
--- NOTE | 2021-08-21 07:28 | Operative Note ---
DATE OF OPERATION: 08/20/2021 PREOPERATIVE DIAGNOSIS: Right subcapital femoral neck fracture, nondisplaced. POSTOPERATIVE DIAGNOSIS: Right subcapital femoral neck fracture, nondisplaced. PROCEDURE PERFORMED: Right hip closed reduction and percutaneous screw fixation. SURGEON: Don Muniz MD CORRECTIONAL SECURITY OFFICER SURGEON: None. ANESTHESIA: General. INDICATIONS: The patient is an 89-year-old male. He fell about 5 weeks ago. He has had pain ever since. He has been unable to ambulate and x-rays and MRI have confirmed a nondisplaced subcapital femoral neck fracture. We talked about continued conservative care versus surgical intervention, but he had significant pain and difficulty with any type of motion and the family and he wished to proceed with surgical intervention, which I felt was reasonable at this point. The risks and benefits were discussed with the patient in detail including, but not limited to, the risks of anesthesia, problems with the heart or lungs related to anesthesia, infection, compromise or injury to the nerves and blood vessels, deep venous thrombosis, pulmonary embolism, pneumonia, continued pain after surgery, worsening pain or symptoms after surgery, swelling, loss of motion, need for repeat surgery, hardware failure, re-tear or failure of repair site, malunion, nonunion, and hardware pain requiring future removal. DESCRIPTION OF PROCEDURE: The patient was seen preoperatively where site was marked and questions were answered. He was then transferred to the operating room, given 2 grams of Ancef and general anesthesia was administered without complication. He was placed on the fracture table with all prominences well padded. He was prepped and draped in the usual sterile fashion throughout the hip using a wall drape. We took preliminary x-rays and visualized the hip and appropriate placement. I percutaneously placed the distal screw in a center-center position of the femur low on the calcar up into the center-center position on the head. I placed two additional percutaneous pins and an inverted triangle on the superior aspect of the neck, one anterior and one posterior. This was confirmed with the C-arm, both in AP and lateral views. I then measured, overdrilled, and reamed and placed three 7.0 mm cannulated screw, short thread which spanned the fracture site and got excellent compression. I took final radiographs and confirmed that the hardware was in good position. The fracture was anatomically reduced. The hardware was in appropriate position. The wounds were thoroughly irrigated, closed with guillermo and dressed with Xeroform, 4 x 4's, ABD, and Medipore tape. He was extubated, transferred to the stretcher, taken to PACU in stable condition. SPECIMENS: None. COMPLICATIONS: None. DRAINS: None. DISPOSITION: To PACU in stable condition. JORGE:elana Job ID: [id number] Doc ID: [id number] Don Muniz MD
[2021-08-21 07:54] LABS: ALT/SGPT 14 U/L (<40); AST/SGOT 21 U/L (<40); Albumin 3.2 gm/dL (3.2-5.2); Albumin/Globulin Ratio 1.2 (1.0-2.3); Alkaline Phosphatase 109 U/L (39-117); Bilirubin,Direct < 0.2 mg/dL (0-0.3); Bilirubin,Total 0.2 mg/dL (0.1-1.0); Blood Urea Nitrogen 25 mg/dL (8-23); Calcium 9.3 mg/dL (8.6-10.4); Carbon Dioxide 24 mmol/L (22-30); Chloride 103 mmol/L (96-108); Globulin 2.7 gm/dL (2.2-3.7); Glomerular Filtration Rate 41; Glucose 213 mg/dL (70-105); Lactate Dehydrogenase 133 U/L (135-225); Phosphorous 4.2 mg/dL (2.5-4.5); Triglycerides 30 mg/dL (<150); Uric Acid 5.1 mg/dL (2.5-8.0)
[2021-08-21] MEDS: INSULIN LISPRO 1 UNIT/0.01 ML UNIT SQ SCH ×4 (07:58→22:49)
[2021-08-21] MEDS: ALLOPURINOL 100 MG TABLET PO SCH (07:58)
[2021-08-21] MEDS: FUROSEMIDE 40 MG TABLET PO SCH (07:59)
[2021-08-21] MEDS: ACETAMINOPHEN 325 MG TABLET PO PRN (07:59)
[2021-08-21] MEDS: DOCUSATE SODIUM 100 MG CAPSULE PO SCH ×2 (08:00→22:44)
[2021-08-21] MEDS: OLMESARTAN MEDOXOMIL 20 MG TABLET PO SCH (08:14)
--- NOTE | 2021-08-21 08:16 | Internal Med Progress Note ---
SUBJECTIVE Subjective Patient information: Note initiated : 08/21/21 at 8:11 am Service Date, if different from initiated Date: [] Patient: Cipriano Man 89 y/o M admitted on 08/19/21 for right hip fracture. Chief Complaint: [] Interval history: History of present illness: Mr. Man is a 89 year old M Patient says he tripped backwards that his right knee gave out landing on his right hip this happened about a month ago. Has had persistent pain and difficulty walking since then. He got an MRI by his PCP few days ago which showed a right hip fracture. Patient sent to the ED and Dr. Muniz for orthopedic surgery was contacted. MRI reported a subcapital fracture of the right femoral neck. Patient denies any recent illnesses. EKG in the ED showed appeared to be slow A. fib. Patient denies chest pain or shortness of breath. Awaiting laboratory results. 08/20 No new complaints overnight events. Patient denies any history of arrhythmias. AFib on EKG. 08/21 Patient status post ORIF yesterday. His rhythm with A. fib I did discuss anticoagulation for stroke risk as he has a [id number] score of 3. Patient did not want to start anticoagulation at this time would want to talk to his primary care doctor, I mentioned placing a referral for cardiology. Hyperkalemic today. We will hold ARB. Review of Systems: denies headache/fever/chills/nausea/vomiting/chest or abdominal pain/cough/dyspnea/diarrhea. Otherwise see above. Constitutional Vitals: Vital Signs Temp Pulse Resp BP Pulse Ox 97.4 F 95 H 18 120/74 89 L 08/21/21 07:48 08/21/21 07:48 08/21/21 07:48 08/21/21 07:48 08/21/21 07:48 Period Temp Pulse Resp BP Sys/Oropeza Pulse Ox Last 24 Hr 97.4 F-98.3 F 65-95 12-28 120-143/64-105 88-100 Intake and Output 08/20/21 08/21/21 08/21/21 21:59 05:59 13:59 Intake Total 150 Output Total 0 Balance 150 0 Weight 82.1 kg 82.055 kg Intake & Output: Intake & Output 08/20/21 08/21/21 08/21/21 21:59 05:59 13:59 Intake Total 150 Output Total 0 Balance 150 0 Weight 82.1 kg 82.055 kg Intake: IV 150 Ancef 2 gm In Dextrose 5% in 50 Water 50 ml @ 100 mls/hr IV PREOP NANCY Rx#:[id number] Output: Void Amount 0 # of times incontinent of urine 0 Other: Urine Appearance Clear Urine Color Bright Yellow Urine Odor Normal # Voids 0 Exam: General: Alert, Awake, No acute Distress Eyes/N/T: EOMI,, Head/Neck: neck supple, CV: irregular, No murmurs, Pulm: Clear b/l, no wheezing/rhonchi/rales Abd: soft, nontender, +BS x4 Ext: no clubbing/cyanosis, b/l LE chronic 1+ edema improving Neuro: Alert, no focal deficits, moves all extremities, Skin: warm/dry OBJ DATA Labs CBC & Chem 7: 08/20/21 05:40 08/21/21 05:36 Labs: Abnormal Lab Results 08/21/21 08/20/21 08/20/21 05:36 05:40 05:39 RBC 3.55 L Hgb 11.6 L Hct 36.6 L MCV 103.1 H Eos % (Auto) 8.6 H Potassium 5.4 H Chloride BUN 25 H Creatinine 1.5 H 1.3 H Glucose 213 H 50 L Lactate Dehydrogenase 133 L Total Protein 5.6 L 08/19/21 08/19/21 14:41 14:41 RBC 3.73 L Hgb 12.2 L Hct 39.0 L MCV 104.6 H Eos % (Auto) 7.2 H Potassium Chloride 109 H BUN 29 H Creatinine 1.3 H Glucose 161 H Lactate Dehydrogenase Total Protein Meds: Medications Acetaminophen (Acetaminophen 325 Mg Tablet) 650 mg PO Q6HP PRN; Protocol PRN Reason: Per Pain Protocol/Fever > 101 Last Admin: 08/21/21 07:59 Dose: 650 mg Documented by: Hydrocodone Bitart/Acetaminophen (Hydrocodone/Apap 10/325mg Tablet) 0 tab PO Q4HP PRN; Protocol PRN Reason: Per Pain Protocol Albuterol/Ipratropium (Ipratropium/Albuterol 3 Ml Ampul.Neb) 3 ml NEB Q4HP PRN PRN Reason: Shortness Of Breath Allopurinol (Allopurinol 100 Mg Tablet) 50 mg PO DAILY [facility] Last Admin: 08/21/21 07:58 Dose: 50 mg Documented by: Amlodipine Besylate (Amlodipine 5 Mg Tablet) 5 mg PO QDAY [facility] Last Admin: 08/20/21 07:41 Dose: 5 mg Documented by: Bisacodyl (Bisacodyl 10 Mg Supp.Rect) 10 mg HI Q2-3DAYS PRN PRN Reason: Constipation Cefazolin Sodium (Cefazolin 1 Gm Vial) 2 gm IV Q8H [facility] Stop: 08/21/21 11:01 Last Admin: 08/21/21 04:23 Dose: 2 gm Documented by: Cyclobenzaprine HCl (Cyclobenzaprine 10 Mg Tablet) 5 mg PO BIDP PRN PRN Reason: Muscle Spasm Dextrose (Dextrose 50% 50 Ml Vial) 0 ml IV UD PRN PRN Reason: Per Sliding Scale Diagnostic Test (Pha) (Accu-Chek 1 Each Strip) 1 each FS ACHS [facility] Last Admin: 08/21/21 07:46 Dose: 1 each Documented by: Docusate Sodium (Docusate Sodium 100 Mg Capsule) 100 mg PO BID [facility] Last Admin: 08/21/21 08:00 Dose: 100 mg Documented by: Fondaparinux (Fondaparinux Sodium 2.5 Mg/0.5 Ml Syringe) 2.5 mg SQ DAILY [facility] Furosemide (Furosemide 40 Mg Tablet) 40 mg PO DAILY [facility] Last Admin: 08/21/21 07:59 Dose: 40 mg Documented by: Glucose (Dextrose 31 Gm Oral.Susp) 15 gm PO PRN PRN PRN Reason: Hypoglycemia Potassium Chloride 40 meq/ (Dextrose) 520 mls @ 130 mls/hr IV UD PRN PRN Reason: Potassium < 3 Magnesium Sulfate (Magnesium Sulfate) 2 gm in 50 mls @ 50 mls/hr IV UD PRN PRN Reason: Magnesium </= 1.6 Insulin Glargine (Insulin Glargine, Human 1 Unit/0.01 Ml) 10 unit SQ [facility] Last Admin: 08/20/21 22:27 Dose: 10 units Documented by: Insulin Human Lispro (Insulin Lispro 1 Unit/0.01 Ml Unit) 0 unit SQ [facility]; Protocol Last Admin: 08/21/21 07:58 Dose: 4 units Documented by: Magnesium Hydroxide (Magnesium Hydroxide 30 Ml Oral.Susp) 30 ml PO BIDP PRN PRN Reason: Constipation Morphine Sulfate (Morphine 4 Mg/Ml Vial) 0 mg IV Q1HP PRN; Protocol PRN Reason: Per Pain Protocol Olmesartan (Olmesartan Medoxomil 20 Mg Tablet) 5 mg PO DAILY [facility] Last Admin: 08/20/21 07:41 Dose: 5 mg Documented by: Ondansetron HCl (Ondansetron 4 Mg/2 Ml Vial) 4 mg IV Q4HP PRN PRN Reason: Nausea And Vomiting Ondansetron HCl (Ondansetron 4 Mg Odt Tablet) 4 mg SL Q4HP PRN; Protocol PRN Reason: Nausea And Vomiting Polyethylene Glycol (Polyethylene Glycol 3350 17 Gm Packet) 17 gm PO DAILYP PRN PRN Reason: Constipation Potassium Chloride (Potassium Chloride 20 Meq Tablet) 40 meq PO UD PRN PRN Reason: Potssium is 3-3.5 Potassium Chloride (Potassium Chloride 20 Meq Tablet) 40 meq PO UD PRN PRN Reason: Potassium < 3 Senna (Sennosides 1 Tablet) 2 tab PO DAILYP PRN PRN Reason: Constipation Senna (Sennosides 1 Tablet) 2 tab PO [facility] Last Admin: 08/20/21 22:27 Dose: 2 tab Documented by: Simvastatin (Simvastatin 10 Mg Tablet) 10 mg PO [facility] Last Admin: 08/20/21 22:26 Dose: 10 mg Documented by: Sodium Biphosphate/Sodium Phosphate (Fleets Adult Enema) 1 dose HI Q3-4DAYS PRN PRN Reason: Constipation Sodium Chloride (0.9 % Sodium Chloride 10 Ml Syringe) 10 ml IV Q8 [facility] Last Admin: 08/21/21 04:23 Dose: 10 ml Documented by: A/P Narrative A/P Narrative: A: *Right hip fracture: s/p ORIF (08/20) *Generalized weakness/deconditioning: *Permanent AFib, slow: -CHADSVASC=3 -echo *CKD IIIb: *Hyperkalemia *Anemia, chronic: *HTN/HLD: *DM: *Chronic pain: *Peripheral edema: On Lasix 40mg daily@home P: -Dr Muniz for Ortho -Pain control -PT/OT -Patient did not want to start anticoagulants at this time and wanted to follow- up with his doctor -echo -f/u potassium and hold ARB -Continue Norvasc/lasix -Basal and SSI -Renally dosed allopurinol -Continue statin -CM for placement needs -f/u with cardiology for Afib -ppx: SCD and postop per Ortho Plan of Treatment: 50% weight bearing Time Spent With Patient Time: Total time spent is greater than 50% in coordination of care (as documented) at patient's floor/unit and/or counseling patient: Total time spent with greater than 50% in coordination of care (as documented) at patient's floor/unit and/or counseling patient:: 25 - 35 minutes QUALITY VTE Deep Vein Thrombosis/Pulmonary Embolism Present on Admission: No
[2021-08-21] MEDS: amLODIPine 5 MG TABLET PO SCH (08:38)
--- NOTE | 2021-08-21 11:43 | EKG ---
[facility] Test Date: 2021-08-19 Pat Name: Cipriano Man Department: ED Room: Gender: Male Electric Meter Installer: SB : 1930 Requested By: August Garcia Order Number: [id number] Reading MD: Fermin Blackman M.D. Measurements Intervals [place] Rate: 59 P: [place]: QRS: 2 QRSD: 98 T: 59 QT: 415 QTc: 412 Interpretive Statements Atrial fibrillation Low voltage, extremity leads Electronically Signed On 08-21-2021 11:43:00 PDT by Fermin Blackman M.D. /store/M0/[id number]/[id number]
--- NOTE | 2021-08-21 11:47 | EKG ---
[facility] Test Date: 2021-08-20 Pat Name: Cipriano Man Department: [facility] Room: 125 Gender: Male Administrative Services Director: : 1930 Requested By: Abdirahman Crisostomo Order Number: [id number] Reading MD: Fermin Blackman M.D. Measurements Intervals [place] Rate: 67 P: [place]: QRS: -50 QRSD: 126 T: 86 QT: 397 QTc: 419 Interpretive Statements Atrial fibrillation Nonspecific IVCD with LAD Artifact in lead(s) I,III,aVR,aVL,aVF,V1 and baseline wander in lead(s) V3 Electronically Signed On 08-21-2021 11:47:23 PDT by Fermin Blackman M.D. /[facility] [place]//[id number]
--- NOTE | 2021-08-21 11:51 | EKG ---
Loc[facility] Test Date: 2021-08-21 Pat Name: Cipriano Man Department: [facility] Room: 125 Gender: Male Director Of Occupational Therapy: : 1930 Requested By: Abdirahman Crisostomo Order Number: [id number] Reading MD: Fermin Blackman M.D. Measurements Intervals [place] Rate: 69 P: [place]: QRS: -22 QRSD: 105 T: 61 QT: 394 QTc: 422 Interpretive Statements Atrial fibrillation Borderline left axis deviation Borderline low voltage, extremity leads Poor R wave progression. Electronically Signed On 08-21-2021 11:51:32 PDT by Fermin Blackman M.D. /store/M0/[id number]
--- NOTE | 2021-08-21 17:33 | Orthopedic Progress Note ---
SUBJECTIVE Subjective Patient information: Note initiated : 08/21/21 at 5:31 pm Service Date, if different from initiated Date: [] Patient: Cipriano Man 89 y/o M admitted on 08/19/21 for right hip fracture. Chief Complaint: [] Interval history: POD 1 s/p right hip pinning. Patient is doing well today and his pain is controlled. He denies any CP, SOB, fever, or any other acute symptoms. Constitutional Vitals: Vital Signs Temp Pulse Resp BP Pulse Ox 98 F 62 18 108/64 91 08/21/21 17:15 08/21/21 17:15 08/21/21 17:15 08/21/21 17:15 08/21/21 17:15 Period Temp Pulse Resp BP Sys/Oropeza Pulse Ox Last 24 Hr 97.4 F-98.2 F 62-95 12-28 106-137/55-105 88-100 Intake and Output 08/21/21 08/21/21 08/21/21 05:59 13:59 21:59 Output Total 0 300 450 Balance 0 -300 -450 Weight 180 lb 14.4 oz Intake & Output: Intake & Output 08/21/21 08/21/21 08/21/21 05:59 13:59 21:59 Output Total 0 300 450 Balance 0 -300 -450 Weight 180 lb 14.4 oz Output: Void Amount 0 300 450 # of times incontinent of urine 0 Other: Meal Breakfast Lunch Percent of Meal Consumed 100% 100% Stool Color Yellow # Voids 0 Exam: exam of the right hip reveals dressings dry and in place, NVI in the entire RLE, some weakness with straight leg raise. OBJ DATA Labs CBC & Chem 7: 08/20/21 05:40 08/21/21 05:36 Labs: Abnormal Lab Results 08/21/21 08/20/21 08/20/21 05:36 05:40 05:39 RBC 3.55 L Hgb 11.6 L Hct 36.6 L MCV 103.1 H Eos % (Auto) 8.6 H Potassium 5.4 H Chloride BUN 25 H Creatinine 1.5 H 1.3 H Glucose 213 H 50 L Lactate Dehydrogenase 133 L Total Protein 5.6 L 08/19/21 08/19/21 14:41 14:41 RBC 3.73 L Hgb 12.2 L Hct 39.0 L MCV 104.6 H Eos % (Auto) 7.2 H Potassium Chloride 109 H BUN 29 H Creatinine 1.3 H Glucose 161 H Lactate Dehydrogenase Total Protein Meds: Medications Acetaminophen (Acetaminophen 325 Mg Tablet) 650 mg PO Q6HP PRN; Protocol PRN Reason: Per Pain Protocol/Fever > 101 Last Admin: 08/21/21 07:59 Dose: 650 mg Documented by: Hydrocodone Bitart/Acetaminophen (Hydrocodone/Apap 10/325mg Tablet) 0 tab PO Q4HP PRN; Protocol PRN Reason: Per Pain Protocol Albuterol/Ipratropium (Ipratropium/Albuterol 3 Ml Ampul.Neb) 3 ml NEB Q4HP PRN PRN Reason: Shortness Of Breath Allopurinol (Allopurinol 100 Mg Tablet) 50 mg PO DAILY [facility] Last Admin: 08/21/21 07:58 Dose: 50 mg Documented by: Amlodipine Besylate (Amlodipine 5 Mg Tablet) 5 mg PO QDAY [facility] Last Admin: 08/21/21 08:38 Dose: 5 mg Documented by: Bisacodyl (Bisacodyl 10 Mg Supp.Rect) 10 mg CA Q2-3DAYS PRN PRN Reason: Constipation Cyclobenzaprine HCl (Cyclobenzaprine 10 Mg Tablet) 5 mg PO BIDP PRN PRN Reason: Muscle Spasm Dextrose (Dextrose 50% 50 Ml Vial) 0 ml IV UD PRN PRN Reason: Per Sliding Scale Diagnostic Test (Pha) (Accu-Chek 1 Each Strip) 1 each FS ACHS [facility] Last Admin: 08/21/21 16:40 Dose: 1 each Documented by: Docusate Sodium (Docusate Sodium 100 Mg Capsule) 100 mg PO BID [facility] Last Admin: 08/21/21 08:00 Dose: 100 mg Documented by: Fondaparinux (Fondaparinux Sodium 2.5 Mg/0.5 Ml Syringe) 2.5 mg SQ DAILY [facility] Furosemide (Furosemide 40 Mg Tablet) 40 mg PO DAILY [facility] Last Admin: 08/21/21 07:59 Dose: 40 mg Documented by: Glucose (Dextrose 31 Gm Oral.Susp) 15 gm PO PRN PRN PRN Reason: Hypoglycemia Potassium Chloride 40 meq/ (Dextrose) 520 mls @ 130 mls/hr IV UD PRN PRN Reason: Potassium < 3 Magnesium Sulfate (Magnesium Sulfate) 2 gm in 50 mls @ 50 mls/hr IV UD PRN PRN Reason: Magnesium </= 1.6 Insulin Glargine (Insulin Glargine, Human 1 Unit/0.01 Ml) 10 unit SQ [facility] Last Admin: 08/20/21 22:27 Dose: 10 units Documented by: Insulin Human Lispro (Insulin Lispro 1 Unit/0.01 Ml Unit) 0 unit SQ [facility]; Protocol Last Admin: 08/21/21 16:59 Dose: 4 units Documented by: Magnesium Hydroxide (Magnesium Hydroxide 30 Ml Oral.Susp) 30 ml PO BIDP PRN PRN Reason: Constipation Morphine Sulfate (Morphine 4 Mg/Ml Vial) 0 mg IV Q1HP PRN; Protocol PRN Reason: Per Pain Protocol Ondansetron HCl (Ondansetron 4 Mg/2 Ml Vial) 4 mg IV Q4HP PRN PRN Reason: Nausea And Vomiting Ondansetron HCl (Ondansetron 4 Mg Odt Tablet) 4 mg SL Q4HP PRN; Protocol PRN Reason: Nausea And Vomiting Polyethylene Glycol (Polyethylene Glycol 3350 17 Gm Packet) 17 gm PO DAILYP PRN PRN Reason: Constipation Potassium Chloride (Potassium Chloride 20 Meq Tablet) 40 meq PO UD PRN PRN Reason: Potssium is 3-3.5 Potassium Chloride (Potassium Chloride 20 Meq Tablet) 40 meq PO UD PRN PRN Reason: Potassium < 3 Senna (Sennosides 1 Tablet) 2 tab PO DAILYP PRN PRN Reason: Constipation Senna (Sennosides 1 Tablet) 2 tab PO [facility] Last Admin: 08/20/21 22:27 Dose: 2 tab Documented by: Simvastatin (Simvastatin 10 Mg Tablet) 10 mg PO [facility] Last Admin: 08/20/21 22:26 Dose: 10 mg Documented by: Sodium Biphosphate/Sodium Phosphate (Fleets Adult Enema) 1 dose CA Q3-4DAYS PRN PRN Reason: Constipation Sodium Chloride (0.9 % Sodium Chloride 10 Ml Syringe) 10 ml IV Q8 [facility] Last Admin: 08/21/21 14:06 Dose: 10 ml Documented by: A/P Narrative Plan of Treatment: 50% weight bearing Time Spent With Patient Time: Total time spent is greater than 50% in coordination of care (as documented) at patient's floor/unit and/or counseling patient:
[2021-08-21] MEDS: SENNOSIDES 1 TABLET PO SCH (22:44)
[2021-08-21] MEDS: SIMVASTATIN 10 MG TABLET PO SCH (22:44)
[2021-08-21] MEDS: INSULIN GLARGINE, HUMAN 1 UNIT/0.01 ML SQ SCH (22:49)
[2021-08-22] MEDS: 0.9 % SODIUM CHLORIDE 10 ML SYRINGE IV SCH (04:17)
[2021-08-22] MEDS: INSULIN LISPRO 1 UNIT/0.01 ML UNIT SQ SCH ×2 (07:08→11:53)
[2021-08-22 07:15] LABS: Blood Urea Nitrogen 46 mg/dL (8-23); Calcium 8.8 mg/dL (8.6-10.4); Carbon Dioxide 26 mmol/L (22-30); Chloride 100 mmol/L (96-108); Glomerular Filtration Rate 33; Glucose 95 mg/dL (70-105)
--- NOTE | 2021-08-22 07:51 | Internal Med Progress Note ---
SUBJECTIVE Subjective Patient information: Note initiated : 08/22/21 at 7:47 am Service Date, if different from initiated Date: [] Patient: Cipriano Man 89 y/o M admitted on 08/19/21 for right hip fracture. Chief Complaint: [] Interval history: History of present illness: Mr. Man is a 89 year old M Patient says he tripped backwards that his right knee gave out landing on his right hip this happened about a month ago. Has had persistent pain and difficulty walking since then. He got an MRI by his PCP few days ago which showed a right hip fracture. Patient sent to the ED and Dr. Muniz for orthopedic surgery was contacted. MRI reported a subcapital fracture of the right femoral neck. Patient denies any recent illnesses. EKG in the ED showed appeared to be slow A. fib. Patient denies chest pain or shortness of breath. Awaiting laboratory results. 08/20 No new complaints overnight events. Patient denies any history of arrhythmias. AFib on EKG. 08/21 Patient status post ORIF yesterday. His rhythm with A. fib I did discuss anticoagulation for stroke risk as he has a [id number] score of 3. Patient did not want to start anticoagulation at this time would want to talk to his primary care doctor, I mentioned placing a referral for cardiology. Hyperkalemic today. We will hold ARB. 08/22 Creatinine bumped today and his blood pressure is little soft, will hold his home Lasix and hold his Norvasc. Follow-up blood pressure and renal function. Continue to work with PT. Review of Systems: denies headache/fever/chills/nausea/vomiting/chest or abdominal pain/cough/dyspnea/diarrhea. Otherwise see above. Constitutional Vitals: Vital Signs Temp Pulse Resp BP Pulse Ox 97.4 F 58 L 16 107/65 91 08/22/21 06:48 08/22/21 06:48 08/22/21 06:48 08/22/21 06:48 08/22/21 06:48 Period Temp Pulse Resp BP Sys/Oropeza Pulse Ox Last 24 Hr 97.4 F-98.2 F 55-95 -22 96-120/55-74 89-92 Intake and Output 08/21/21 08/22/21 08/22/21 21:59 05:59 13:59 Intake Total 360 Output Total 450 400 Balance -450 -40 Weight 81.675 kg Intake & Output: Intake & Output 08/21/21 08/22/21 08/22/21 21:59 05:59 13:59 Intake Total 360 Output Total 450 400 Balance -450 -40 Weight 81.675 kg Intake: Oral 360 Output: Void Amount 450 400 Other: Meal Lunch Percent of Meal Consumed 100% Urine Appearance Clear Urine Color Bright Yellow Stool Color Yellow Exam: General: Alert, Awake, No acute Distress Eyes/N/T: EOMI,, Head/Neck: neck supple, CV: irregular, No murmurs, Pulm: Clear b/l, no wheezing/rhonchi/rales Abd: soft, nontender, +BS x4 Ext: no clubbing/cyanosis, b/l LE chronic mild edema improved Neuro: Alert, no focal deficits, moves all extremities, Skin: warm/dry OBJ DATA Labs CBC & Chem 7: 08/20/21 05:40 08/22/21 06:17 Labs: Abnormal Lab Results 08/22/21 08/21/21 08/20/21 06:17 05:36 05:40 RBC 3.55 L Hgb 11.6 L Hct 36.6 L MCV 103.1 H Eos % (Auto) 8.6 H Potassium 5.4 H Chloride BUN 46 H 25 H Creatinine 1.8 H 1.5 H Glucose 213 H Lactate Dehydrogenase 133 L Total Protein 08/20/21 08/19/21 08/19/21 05:39 14:41 14:41 RBC 3.73 L Hgb 12.2 L Hct 39.0 L MCV 104.6 H Eos % (Auto) 7.2 H Potassium Chloride 109 H BUN 29 H Creatinine 1.3 H 1.3 H Glucose 50 L 161 H Lactate Dehydrogenase Total Protein 5.6 L Meds: Medications Acetaminophen (Acetaminophen 325 Mg Tablet) 650 mg PO Q6HP PRN; Protocol PRN Reason: Per Pain Protocol/Fever > 101 Last Admin: 08/21/21 07:59 Dose: 650 mg Documented by: Hydrocodone Bitart/Acetaminophen (Hydrocodone/Apap 10/325mg Tablet) 0 tab PO Q4HP PRN; Protocol PRN Reason: Per Pain Protocol Last Admin: 08/21/21 22:49 Dose: 2 tab Documented by: Albuterol/Ipratropium (Ipratropium/Albuterol 3 Ml Ampul.Neb) 3 ml NEB Q4HP PRN PRN Reason: Shortness Of Breath Allopurinol (Allopurinol 100 Mg Tablet) 50 mg PO DAILY [facility] Last Admin: 08/21/21 07:58 Dose: 50 mg Documented by: Amlodipine Besylate (Amlodipine 5 Mg Tablet) 5 mg PO QDAY [facility] Last Admin: 08/21/21 08:38 Dose: 5 mg Documented by: Bisacodyl (Bisacodyl 10 Mg Supp.Rect) 10 mg WA Q2-3DAYS PRN PRN Reason: Constipation Cyclobenzaprine HCl (Cyclobenzaprine 10 Mg Tablet) 5 mg PO BIDP PRN PRN Reason: Muscle Spasm Dextrose (Dextrose 50% 50 Ml Vial) 0 ml IV UD PRN PRN Reason: Per Sliding Scale Diagnostic Test (Pha) (Accu-Chek 1 Each Strip) 1 each FS ACHS [facility] Last Admin: 08/22/21 07:08 Dose: 1 each Documented by: Docusate Sodium (Docusate Sodium 100 Mg Capsule) 100 mg PO BID [facility] Last Admin: 08/21/21 22:44 Dose: 100 mg Documented by: Fondaparinux (Fondaparinux Sodium 2.5 Mg/0.5 Ml Syringe) 2.5 mg SQ DAILY [facility] Furosemide (Furosemide 40 Mg Tablet) 40 mg PO DAILY [facility] Last Admin: 08/21/21 07:59 Dose: 40 mg Documented by: Glucose (Dextrose 31 Gm Oral.Susp) 15 gm PO PRN PRN PRN Reason: Hypoglycemia Potassium Chloride 40 meq/ (Dextrose) 520 mls @ 130 mls/hr IV UD PRN PRN Reason: Potassium < 3 Magnesium Sulfate (Magnesium Sulfate) 2 gm in 50 mls @ 50 mls/hr IV UD PRN PRN Reason: Magnesium </= 1.6 Insulin Glargine (Insulin Glargine, Human 1 Unit/0.01 Ml) 10 unit SQ [facility] Last Admin: 08/21/21 22:49 Dose: 10 units Documented by: Insulin Human Lispro (Insulin Lispro 1 Unit/0.01 Ml Unit) 0 unit SQ [facility]CHS [facility]; Protocol Last Admin: 08/22/21 07:08 Dose: Not Given Documented by: Magnesium Hydroxide (Magnesium Hydroxide 30 Ml Oral.Susp) 30 ml PO BIDP PRN PRN Reason: Constipation Morphine Sulfate (Morphine 4 Mg/Ml Vial) 0 mg IV Q1HP PRN; Protocol PRN Reason: Per Pain Protocol Ondansetron HCl (Ondansetron 4 Mg/2 Ml Vial) 4 mg IV Q4HP PRN PRN Reason: Nausea And Vomiting Ondansetron HCl (Ondansetron 4 Mg Odt Tablet) 4 mg SL Q4HP PRN; Protocol PRN Reason: Nausea And Vomiting Polyethylene Glycol (Polyethylene Glycol 3350 17 Gm Packet) 17 gm PO DAILYP PRN PRN Reason: Constipation Potassium Chloride (Potassium Chloride 20 Meq Tablet) 40 meq PO UD PRN PRN Reason: Potssium is 3-3.5 Potassium Chloride (Potassium Chloride 20 Meq Tablet) 40 meq PO UD PRN PRN Reason: Potassium < 3 Senna (Sennosides 1 Tablet) 2 tab PO DAILYP PRN PRN Reason: Constipation Senna (Sennosides 1 Tablet) 2 tab PO [facility] Last Admin: 08/21/21 22:44 Dose: 2 tab Documented by: Simvastatin (Simvastatin 10 Mg Tablet) 10 mg PO [facility] Last Admin: 08/21/21 22:44 Dose: 10 mg Documented by: Sodium Biphosphate/Sodium Phosphate (Fleets Adult Enema) 1 dose WA Q3-4DAYS PRN PRN Reason: Constipation Sodium Chloride (0.9 % Sodium Chloride 10 Ml Syringe) 10 ml IV Q8 [facility] Last Admin: 08/22/21 04:17 Dose: 10 ml Documented by: A/P Narrative A/P Narrative: A: *Right hip fracture: s/p ORIF (08/20) *Generalized weakness/deconditioning: *Permanent AFib, slow: -CHADSVASC=3 -echo with normal EF and normal diastolic *?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: creatinine bump *Hyperkalemia: rsolved *Anemia, chronic: *HTN/HLD: *DM: *Chronic pain: *Peripheral edema: On Lasix 40mg daily@home -echo with normal EF and normal diastolic P: -hold lasix for bump in creatinine -Dr Muniz for Ortho -Pain control -PT/OT -Patient did not want to start anticoagulants at this time and wanted to follow- up with his doctor -hold home lasix -Continue Norvasc but decrease for low bp, cont hold ARB -Basal and SSI -Renally dosed allopurinol -Continue statin -CM for placement needs -f/u with cardiology for Afib -ppx: SCD and postop per Ortho Arixtra Plan of Treatment: 50% weight bearing Time Spent With Patient Time: Total time spent is greater than 50% in coordination of care (as documented) at patient's floor/unit and/or counseling patient: Total time spent with greater than 50% in coordination of care (as documented) at patient's floor/unit and/or counseling patient:: 25 - 35 minutes QUALITY VTE Deep Vein Thrombosis/Pulmonary Embolism Present on Admission: No
[2021-08-22] MEDS: ALLOPURINOL 100 MG TABLET PO SCH (08:35)
[2021-08-22] MEDS: ACETAMINOPHEN 325 MG TABLET PO PRN (08:35)
[2021-08-22] MEDS: DOCUSATE SODIUM 100 MG CAPSULE PO SCH (08:37)
[2021-08-22] MEDS ORDERED: FONDAPARINUX SODIUM 2.5 MG/0.5 ML SYRINGE SQ SCH (09:00)
--- NOTE | 2021-08-22 09:14 | Discharge Summary ---
Discharge Provider Provider Patient information: Note initiated : 08/22/21 at 9:12 am Service Date, if different from initiated Date: [] Patient: Cipriano Man 89 y/o M admitted on 08/19/21 for right hip fracture. Chief Complaint: [] Date of admission: 08/19/21 16:30 Discharge date: 08/22/21 Primary care physician: Ramana Ortiz MD Consults: 08/19/21 Consult to Physician [CONS] Stat Comment: Consulting Provider: Abdirahman Crisostomo Reason For Exam: Physician to Consult 08/19/21 14:44 Consult to Physician [CONS] Stat Comment: Consulting Provider: Fermin Muniz Reason For Exam: Physician to Consult Discharge Meds Discharge Medications Home Medications cholecalciferol (vitamin D3) 50 mcg (2,000 unit) capsule 50 mcg PO QDAY 09/13/19 [History Confirmed 08/19/21 Last Taken Unknown] diclofenac sodium 1 % topical gel 4 g TOPICAL QID #100 g 07/26/20 [Rx Confirmed 08/19/21 Last Taken Unknown] olmesartan 5 mg tablet (Benicar) 5 mg PO QDAY #90 tab 06/17/21 [Rx Confirmed 08/19/21 Last Taken Unknown] pravastatin 40 mg tablet 40 mg PO QDAY #90 tab 06/17/21 [Rx Confirmed 08/19/21 Last Taken Unknown] Lateral stabilizing R knee brace #1 ea 08/01/21 [Rx Confirmed 08/19/21 Last Taken Unknown] cyclobenzaprine 5 mg tablet 1 tab PO BIDP PRN 08/19/21 [History Confirmed 08/19/21 Last Taken Unknown] furosemide 20 mg tablet 2 tab PO QDAY 08/19/21 [History Confirmed 08/19/21 Last Taken Unknown] insulin glargine 100 unit/mL (3 mL) subcutaneous pen (Lantus Solostar U-100 Insulin) 22 unit SUBCUT QDAY 08/19/21 [History Confirmed 08/19/21 Last Taken Unknown] hydrocodone 10 mg-acetaminophen 325 mg tablet 1 - 2 tab PO Q4H PRN #60 tab 08/20/21 [Rx Last Taken Unknown] allopurinol 100 mg tablet 50 mg PO DAILY 15 Days tab 08/22/21 [Rx Last Taken Unknown] amlodipine 5 mg tablet 2.5 mg PO QDAY #1 tab 08/22/21 [Rx Last Taken Unknown] aspirin 325 mg tablet 325 mg PO QDAY 08/22/21 [History Confirmed 08/22/21 Last Taken Unknown] fondaparinux 2.5 mg/0.5 mL subcutaneous solution syringe (Arixtra) 2.5 mg (0.5 mL) SUBCUT QDAY 14 Days #14 syringe 08/22/21 [Rx Last Taken Unknown] COURSE Hospital Course Hospital course: Mr. Man is a 89 year old M Patient says he tripped backwards that his right knee gave out landing on his right hip this happened about a month ago. Has had persistent pain and difficulty walking since then. He got an MRI by his PCP few days ago which showed a right hip fracture. Patient sent to the ED and Dr. Muniz for orthopedic surgery was contacted. MRI reported a subcapital fracture of the right femoral neck. Patient denies any recent illnesses. EKG in the ED showed appeared to be slow A. fib. Patient denies chest pain or shortness of breath. Awaiting laboratory results. 08/20 No new complaints overnight events. Patient denies any history of arrhythmias. AFib on EKG. 08/21 Patient status post ORIF yesterday. His rhythm with A. fib I did discuss anticoagulation for stroke risk as he has a [id number] score of 3. Patient did not want to start anticoagulation at this time would want to talk to his primary care doctor, I mentioned placing a referral for cardiology. Hyperkalemic today. We will hold ARB. 08/22 Creatinine bumped today and his blood pressure is little soft, will hold his home Lasix and hold his Norvasc. Follow-up blood pressure and renal function. Continue to work with PT. 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 fib generalized weakness decondi tioning Secondary discharge diagnosis: Acute on chronic kidney disease electrolyte disorder anemia hypertension diabetes chronic pain peripheral edema Time Spent with Patient Time attestation: Total time spent providing and/or coordinating discharge services: Time spent: Greater than 30 minutes EXAM Constitutional Vitals: Temp Pulse Resp BP Pulse Ox 97.4 F 58 L 16 107/65 91 08/22/21 06:48 08/22/21 06:48 08/22/21 06:48 08/22/21 06:48 08/22/21 06:48 Discharge Data Data Completed and Pending Labs on day of discharge: Labs from last 24 hours 08/22/21 06:17 Sodium 135 Potassium 4.6 Chloride 100 Carbon Dioxide 26 Anion Gap 9.0 BUN 46 H Creatinine 1.8 H GFR Calculation 33 Glucose 95 Calcium 8.8 Discharge Plan Patient/Caregiver Discharge Instructions Activity: ambulate only with your walker, as instructed and other Diet: Regular Diet Activity Restrictions/Additional Instructions: Referral to see cardiology in 3-14 days for atrial fibrillation. Follow-up with PCP/Cardio regarding discussion of anticoagulation Restart home olmesartan and 2 days. Monitor blood pressure twice daily and bring log to PCP. Resume home diet as tolerated. Take all meals up in chair, sitting at 90 degrees, to prevent aspiration. Increase activity as tolerated. Continue fall precautions. Follow-up with .Contact the office on to schedule Continue aggressive bowel regimen to prevent constipation. Take all medication as directed. Your prescription is with your discharge paperwork. Pain medication can cause constipation; take an over the counter stool softener and/or laxative while on pain medication. 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 Return to ER for fever, chills, uncontrolled pain, inability to urinate or have a bowel movement, nausea and/or vomiting, swelling, redness, signs of infection, shortness of breath, chest pain, return of symptoms, or other acute symptom Prescriptions: New hydrocodone-acetaminophen 10-325 mg Tablet 1 - 2 tab PO Q4H PRN (Reason: Pain) Qty: 60 0RF allopurinol 100 mg Tablet 50 mg PO DAILY 15 Days 0RF fondaparinux [Arixtra] 2.5 mg/0.5 mL Syringe 2.5 mg SUBCUT QDAY 14 Days Qty: 14 0RF Continued pravastatin 40 mg tablet 40 mg PO QDAY Qty: 90 1RF olmesartan [Benicar] 5 mg tablet 5 mg PO QDAY Qty: 90 1RF cholecalciferol (vitamin D3) 50 mcg (2,000 unit) capsule 50 mcg PO QDAY 0RF (DME) Lateral stabilizing R knee brace See Rx Instructions .Route .MEDSUPPLY Qty: 1 0RF Rx Instructions: As directed diclofenac sodium 1 % gel 4 g topical QID Qty: 100 0RF Rx Instructions: apply to area of pain furosemide 20 mg tablet 2 tab PO QDAY 0RF cyclobenzaprine 5 mg tablet 1 tab PO BIDP PRN (Reason: muscle spasm) 0RF Lantus Solostar U-100 Insulin 100 unit/mL (3 mL) insulin pen 22 unit subcut QDAY 0RF leuprolide acetate (6 month) 45 mg syringe kit 45 mg IM ONCE Qty: 1 0RF Changed amlodipine 5 mg tablet 2.5 mg PO QDAY Qty: 1 0RF Discontinued allopurinol 100 mg tablet 200 mg PO BID Qty: 360 1RF hydrocodone-acetaminophen 7.5-325 mg tablet 1 tab PO BID PRN (Reason: pain) Qty: 30 0RF aspirin 325 mg Tablet 325 mg PO DAILY 0RF No Action aspirin 325 mg Tablet 325 mg PO QDAY 0RF Other Ambulatory Orders: Physical Therapy DC - General (Routine) Location: None Selected Ordered By: Fermin Muniz Follow Up Plan Follow up with: Fermin Muniz MD [Physician] - Ramana Ortiz MD [Primary Care Provider] - Patient Disposition: Home Health Service Plan of Treatment: 50% weight bearing Prognosis: Fair Rehab Potential: Good I certify that the patient requires SNF services: Yes Overall status at discharge: patient is progressing back to baseline Discharge Orders: Discharge Order (Routine); Ordered 08/20/21 Ordered By: Fermin Muniz Discharge Comment: cc: right hip fx s/p per screw fixation QUALITY VTE Deep Vein Thrombosis/Pulmonary Embolism Present on Admission: No
== END 2021-08-22 15:44 | disposition home health service (06) | DRG 481 ==
LOC: ED 14:01 → MEDSUR 16:30
PROVIDERS: ADMIT Internal Medicine; ATTEND Internal Medicine